=== PATIENT | male | born 2000 | race Caucasian/White ===

== ENCOUNTER 2019-02-20 18:39 | Emergency (ER) | payer OTHER ==
[~2019-02-20] VITALS: Ht 172.7 cm; Wt 72.7 kg
[2019-02-20] MEDS ORDERED: KETOROLAC 60 MG/2 ML VIAL (J1885) IM ONE (20:45)
[2019-02-20] MEDS ORDERED: METAXALONE 800 MG TABLET PO ONE (20:45)
[2019-02-20] MEDS ORDERED: SKEL800T97 PO (20:59)
[2019-02-20] MEDS ORDERED: NAPR-837 PO (20:59)
[2019-02-20 21:37] VITALS: BP 127/76
== END 2019-02-20 21:40 | disposition home or self-care (01) ==
LOC: M ED 18:39
DX: S39.012A Strain of muscle, fascia and tendon of lower back, initial encounter (principal); X50.9XXA Other and unspecified overexertion or strenuous movements or postures, initial encounter; Y92.84 Military training ground as the place of occurrence of the external cause; Y93.B9 Activity, other involving muscle strengthening exercises; Y99.1 Military activity
CPT/HCPCS: 96372; 99283; J1885

== ENCOUNTER 2019-03-06 09:12 | Emergency (ER) | payer OTHER ==
[~2019-03-06] VITALS: Ht 172.7 cm; Wt 73.6 kg
[~2019-03-06 09:12] MED LIST: NAPR-837 PO; SKEL800T97 PO
[2019-03-06] MEDS ORDERED: CYCLOBENZAPRINE 10 MG TAB PO ONE (10:45)
[2019-03-06] MEDS ORDERED: IBUPROFEN 800 MG TAB PO ONE (10:45)
[2019-03-06 10:50] LABS: BASO # 0.1 10^3/uL (0.0-0.2); BASO % 0.7 % (0.0-1.0); EOS # 0.1 10^3/uL (0.0-0.50); EOS % 0.7 % (0.0-3.0); HEMATOCRIT 42.9 % (42.0-52.0); HEMOGLOBIN 14.4 g/dl (13.5-17.5); LYMPH # 3.2 10^3/uL (1.5-6.5); LYMPH % 42.5 % (24.0-44.0); MEAN CORPUSCULAR HEMOGLOBIN 30.4 pg (27.0-33.0); MEAN CORPUSCULAR HGB CONC 33.6 g/dl (32.0-36.5); MEAN CORPUSCULAR VOLUME 90.5 fl (80.0-96.0); MONO # 0.6 10^3/uL (0.0-0.8); MONO % 8.2 % (0.0-5.0); NEUTROPHILS # 3.5 10^3/uL (1.8-7.7); NEUTROPHILS % 47.6 % (36.0-66.0); PLATELET COUNT, AUTOMATED 238 10^3/uL (150-450); RED BLOOD COUNT 4.74 10^6/uL (4.30-6.10); WHITE BLOOD COUNT 7.4 10^3/uL (4.0-10.0)
--- NOTE | 2019-03-06 11:15 | REP ---
Clinical: Lower back pain . Technique: AP, lateral, bilateral oblique, and coned-down views. Findings: Alignment and lordosis is maintained. The vertebral bodies including transverse process and spinous processes are intact and normal. There is no evidence for acute fracture / compression injury or subluxation. No evidence for spondylolysis or spondylolisthesis. No significant degenerative change is noted. Impression: Normal lumbosacral spine radiograph series. Electronically Signed by Ramón Abreu MD 03/06/2019 11:06 A
[2019-03-06 11:16] LABS: BLOOD UREA NITROGEN 11 MG/DL (7-18); CALCIUM LEVEL 8.8 MG/DL (8.5-10.1); CARBON DIOXIDE LEVEL 27 MEQ/L (21-32); CHLORIDE LEVEL 107 MEQ/L (98-107); CREATININE FOR GFR 0.96 MG/DL (0.70-1.30); GLUCOSE, FASTING 93 MG/DL (70-100); POTASSIUM SERUM 4.2 MEQ/L (3.5-5.1); SODIUM LEVEL 140 MEQ/L (136-145)
[2019-03-06 11:38] VITALS: BP 131/68
[2019-03-06] MEDS ORDERED: CYCL5TAB PO (11:44)
[2019-03-06] MEDS ORDERED: IBUP80TA PO (11:44)
== END 2019-03-06 11:57 | disposition home or self-care (01) ==
LOC: M ED 09:12
DX: S39.012A Strain of muscle, fascia and tendon of lower back, initial encounter (principal); X58.XXXA Exposure to other specified factors, initial encounter; Y92.89 Other specified places as the place of occurrence of the external cause; M62.830 Muscle spasm of back